=== PATIENT | female | born 1940 | race Caucasian/White ===

== ENCOUNTER → 2016-09-29 | Outpatient (CLI) | payer OTHER ==
[~2016-09-29] MED LIST: ASPIR 8181 MG PO; ASPIRIN325 PO; ATORVASTATIN CA40 MG PO; BIOTIN5000 MCG PO; CARTIA XT120 M1 PO; CARVEDILOL6.25 MG PO; CENTRUM SILVER1 EAC4 PO; CITRACAL + D M1 EACH PO; CLOPIDOGREL75 MG PO; COZAAR 25 MG TA25 M1 PO; EFFIENT10 MG PO; ELIQUIS5 MG PO; ESTRACE0.5 MG PO; ESTRADIOL 1 MG T1 M1 PO; FARXIGA5 MG PO; GLIMEPIRIDE4 MG PO; HYDROCODONE-AP1 EAC6 PO; IRON325 PO; JARDIANCE10 MG PO; KLOR-CON 1010 MEQ PO; LASIX 40 MG TAB40 M2 PO; LEVOTHYROXINE 0.1 MG PO; LEVOTHYROXINE0.05 MG PO; METFORMIN HCL500 MG PO; NITROGLYCERIN0.4 MG SUBLING; PACERONE 200 M200 M1 PO; PIOGLITAZONE15 MG; PRILOSEC20 MG PO; PROLOPRIM100 MG PO; SAVAYSA60 MG PO; SYNJARDY XR 121 EACH PO; VITAMINC500 PO
[2016-09-29 10:10] VITALS: BP 108/38
[2016-09-29 12:30] VITALS: BP 112/60
== END ==
LOC: OPONC 09-28 11:00
DX: D50.9 Iron deficiency anemia, unspecified (principal)
CPT/HCPCS: 95000; 95001

== ENCOUNTER → 2016-10-04 | Outpatient (CLI) | payer OTHER ==
[2016-10-04 14:07] VITALS: BP 142/75
== END ==
LOC: OPONC 09-29 09:52
DX: D50.9 Iron deficiency anemia, unspecified (principal)
CPT/HCPCS: 95000; 95001

== ENCOUNTER 2016-10-06 15:37 | Emergency (ER) | payer OTHER ==
[~2016-10-06] VITALS: Ht 170.2 cm; Wt 72.6 kg
--- NOTE | ~2016-10-06 | EKG ---
[address] [address] [facility] [place] [address] ELECTROCARDIOGRAM REPORT Name: LIZ SHAH Room #: [facility]#: [id number] Admission: 10/06/16 Attend Phys: Discharge: 10/06/16 Date of : 42 Report #: [id number] THIS REPORT FOR: //name// [facility] Test Date: 2016-10-06 Test Time: 16:06:54 Pat Name: LIZ SHAH Department: Room: Gender: F Associate Sales Representative: [email or web address] : 1940 Requested By: Shankar Cartagena Order Number: [id number] MD: Philip Calvo Measurements Intervals [place] Rate: 64 P: 25 IA: 196 QRS: -16 QRSD: 99 T: 49 QT: 425 QTc: 439 Interpretive Statements Sinus rhythm No significant abnormality Compared to ECG 04/08/2015 16:27:20 Sinus rhythm has replaced atrial fibrillation Electronically Signed On 10-07-2016 8:59:28 CDT by Philip Calvo [email or web address] <ELECTRONICALLY SIGNED> By: Philip Calvo MD, [facility] 10/07/16 0859 D: [id number] 05 Philip Calvo MD, FACC /EPI
[2016-10-06 16:07] LABS: ABSOLUTE NEUTROPHILS 5.3 thou/uL (1.4-8.2); BASOPHILS 1.2 % (0.0-2.0); EOSINOPHILS 1.5 % (0.0-3.0); HEMATOCRIT 27.1 % (37.0-47.0); HEMOGLOBIN 8.1 gm/dL (12.0-15.0); LYMPHOCYTES 19.3 % (24.0-44.0); MANUAL DIFF NO; MCH 23.2 pg (26.0-34.0); MCHC 29.9 g/dL (28.0-37.0); MCV 77.5 fL (80.0-100.0); MONOCYTES 8.2 % (1.0-8.0); PLATELET COUNT 326 thou/uL (150-400); POLYS 69.8 % (36.0-66.0); RDW 20.6 % (10.5-14.5); WBC 7.7 thou/uL (4.0-11.0)
[2016-10-06 16:17] LABS: ANION GAP 11 mmol/L (7-16); BUN 16 mg/dL (7-18); CALCIUM 8.7 mg/dL (8.5-10.1); CHLORIDE 106 mmol/L (98-107); CO2 22 mmol/L (21-32); CREATININE 0.8 mg/dL (0.6-1.0); GLUCOSE 322 mg/dL (74-106); POTASSIUM 4.6 mmol/L (3.5-5.1); SODIUM 139 mmol/L (136-145)
[2016-10-06 16:28] LABS: ALBUMIN 3.1 g/dL (3.4-5.0); ALKALINE PHOSPHATASE 40 U/L (46-116); DIRECT BILIRUBIN < 0.1 mg/dL (<0.1-0.3); NT-PRO BRAIN NAT PEPTIDE 1741 pg/mL (<300); SGOT 19 U/L (15-37); SGPT 20 U/L (30-65); TOTAL BILIRUBIN 0.2 mg/dL (<0.1-1.0); TOTAL PROTEIN 6.4 g/dL (6.4-8.2); TROPONIN-I 0.04 ng/mL (<0.04-0.07)
== END 2016-10-06 18:54 | disposition home or self-care (01) ==
LOC: ER 15:37
PROVIDERS: Nurse Practitioner
DX: R42 Dizziness and giddiness (principal); R53.1 Weakness; I25.2 Old myocardial infarction; I48.91 Unspecified atrial fibrillation; I50.9 Heart failure, unspecified; E11.9 Type 2 diabetes mellitus without complications; E03.9 Hypothyroidism, unspecified; E78.00 Pure hypercholesterolemia, unspecified; Z90.710 Acquired absence of both cervix and uterus; Z87.442 Personal history of urinary calculi; Z98.890 Other specified postprocedural states

== ENCOUNTER → 2016-10-06 | Outpatient (CLI) | payer OTHER ==
--- NOTE | ~2016-10-06 | EKG ---
[address] [place] [address] ELECTROCARDIOGRAM REPORT Name: PBALOLIZ A Room #: [facility]#: [id number] Admission: 10/06/16 Attend Phys: Francisca De La Garza Discharge: Date of : 42 Report #: [id number] THIS REPORT FOR: //name// [facility] Test Date: 2016-10-06 Test Time: 14:13:31 Pat Name: LIZ SHAH Department: Room: Gender: F Forest Economist: Ehsan KELLY : 1940 Requested By: Marc Rodríguez Order Number: [id number] MD: Philip Calvo Measurements Intervals [place] Rate: 109 P: NE: QRS: -17 QRSD: 77 T: 52 QT: 344 QTc: 464 Interpretive Statements Atrial fibrillation Poor R wave progression Compared to ECG 04/08/2015 16:27:20 Atrial fibrillation has replaced sinus rhythm Electronically Signed On 10-07-2016 8:29:18 CDT by Philip Calvo [email or web address] <ELECTRONICALLY SIGNED> By: Philip Calvo MD, [facility] 10/07/16 0829 1413 141 Philip Calvo MD, [facility] /EPI
[2016-10-06 13:54] LABS: HEMATOCRIT 29.4 % (37.0-47.0); HEMOGLOBIN 8.7 gm/dL (12.0-15.0); MCHC 29.7 g/dL (28.0-37.0); MCV 77.6 fL (80.0-100.0); RBC 3.78 mil/uL (4.20-5.00); RDW 20.9 % (10.5-14.5); WBC 7.3 thou/uL (4.0-11.0)
== END ==
LOC: OPONC 00:44
PROVIDERS: Neuromusculoskeletal Medicine & OMM
DX: D50.9 Iron deficiency anemia, unspecified (principal)
CPT/HCPCS: 95000; 95001

== ENCOUNTER → 2016-10-17 | Outpatient (CLI) | payer OTHER | LOC: GI 06:48 | DX: D64.9 Anemia, unspecified (principal) ==

== ENCOUNTER 2017-03-08 05:13 | Day surgery (SDC) | payer OTHER ==
[~2017-03-08] VITALS: Ht 167.6 cm; Wt 68.9 kg
[~2017-03-08 05:13] MED LIST changes: +CARVEDILOL12.5 MG PO; +IRON PO; +SYNTHROID100 MCG PO; +XARELTO20 MG PO
[2017-03-08 07:20] VITALS: BP 119/50
[2017-04-24] MEDS ORDERED: GLUCOPHAGE1000 MG PO (09:54)
[2017-04-24] MEDS ORDERED: INVOKANA100 MG PO (09:54)
[2017-04-24] MEDS ORDERED: TRAMADOL 50 MG50 MG PO (10:08)
== END 2017-03-08 09:00 | disposition home or self-care (01) ==
LOC: OR 05:13 → TBA 05:15 → OR 09:00 → MRI 12:48
DX: M54.16 Radiculopathy, lumbar region (principal); M25.78 Osteophyte, vertebrae; M51.26 Other intervertebral disc displacement, lumbar region; M51.36 Other intervertebral disc degeneration, lumbar region; M41.86 Other forms of scoliosis, lumbar region; Z90.49 Acquired absence of other specified parts of digestive tract; Z98.890 Other specified postprocedural states
CPT/HCPCS: 62110; 62900; 70005

== ENCOUNTER → 2017-04-24 | Outpatient (CLI) | payer OTHER ==
[~2017-04-24] VITALS: Ht 167.6 cm; Wt 70.3 kg
[~2017-04-24] MED LIST changes: +GLUCOPHAGE1000 MG PO; +INVOKANA100 MG PO; +KEFLEX500 M1 PO; +TRAMADOL 50 MG50 MG PO
--- NOTE | ~2017-04-24 | HPC ---
[facility] [address] [address] PAIN MANAGEMENT CONSULTATION Name: PABLOLIZ Andres Room #: [facility].#: [id number] Admission: 04/24/17 Attend Phys: Rakesh Fernando MD Discharge: Date of : 42 Report #: [id number] THIS REPORT FOR: //name// CC: Dhiraj Finley MD [facility] Rakesh Rodríguez MD DATE OF SERVICE: 04/24/2017 CHIEF COMPLAINT: Low back pain with radiation to the left leg. I am seeing today at the request of Dr. Rodríguez and Dr. Lomas. She is a elvin 77-year-old who has been experiencing pain in her left leg for about 6 months. In the past, she would see a chiropractor who is very helpful and provided relief for her. He has left town and the new chiropractor that she has seen has not been helpful. She said he did not spend much time with her and manipulations have been ineffective. She now has burning, shooting, aching pain 09/26. Pain is shooting in her left hip and into her arch. Comes and goes. It is improved with sitting. She has had an MRI, which shows that there is disk degeneration at multiple levels with a left convexity lumbar scoliotic curve. Osteophyte formation is formed at L1-L2, L2-L3, L3-L4 and L4-L5. There is asymmetric bulging at L4-L5 extending into the left neural foramina, which is combined with osteophyte formation from facet resulting in left neural foraminal narrowing in combination with a small lateral disk protrusion. There is additional bulging also noted at L3-L4 and L2-L3 with no evidence of significant central spinal stenosis. Symptoms do correlate with some of the left-sided findings on her MRI. She is here today to discuss an epidural injection. She is unable to receive an injection today for 2 reasons, one she is still on Xarelto within the window for which we must wait due to risk of epidural hematoma and secondly because she needs a preauthorization from her insurance company. MEDICATIONS: Tramadol, metformin, Invokana, Xarelto. She discontinued it 48 hours ago. Carvedilol, iron, biotin, aspirin, calcium, estradiol, losartan, nitroglycerin, and Lipitor. ALLERGIES: None. PAST MEDICAL HISTORY: Significant for atrial fibrillation and myocardial infarction, which occurred at the time when she was diagnosed with atrial fibrillation, she has 2 coronary artery stents. She had bleeding polyps, which required surgery in 06/2014. She had a partial colectomy performed by Dr. Painter. She has been operated on for a prolapsed bladder in 2016[place] [address] PAIN MANAGEMENT CONSULTATION Name: LIZ SHAH Room #: REG [facility] Armando#: [id number] Admission: 04/24/17 Attend Phys: Rakesh Fernando MD Discharge: Date of : 42 Report #: [id number] surgeries include hysterectomy in 1997, appendectomy in 1952 and tonsillectomy in 1973. Medical conditions include coronary artery disease, atrial fibrillation, type 2 diabetes, anemia, gastritis and a history of arthritis. REVIEW OF SYSTEMS: Completed by the patient describes heart problems, palpitations, recent change in bowel movements with frequent diarrhea and nocturia. She is a non-insulin dependent diabetic. She does have some numbness and tingling in her feet. SOCIAL HISTORY: She is . is with her today and supportive. She does not smoke. She drinks alcohol once or twice every 4-5 months. 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 They live independently. Her activities of daily living are limited mostly with weightbearing and walking activities such as shopping and cleaning. PHYSICAL EXAMINATION: Very pleasant, outgoing female. Blood pressure is 127/77, heart rate is 81, respirations 16. She is 5 feet 6 inches, 155 pounds. Her BMI is 25.0. Her pain intensity is a 4/10. She is able to move independently and ambulate with a short stepped gait. She does not have some asymmetry to her gait pattern. She does not appear to be a fall risk and has not fallen in the last 3 months. It should be noted she is under treatment for hypertension. Examination of the low back reveals scoliosis. There is tenderness across the lumbosacral segment. Straight leg raising on the left reproduces pain down the lateral aspect to the leg and in the posterior aspect, which involves mostly the distribution of L5 and S1. Deep tendon reflexes show asymmetry. She has 2+ knee jerk reflex on the right and an absent reflex on the left. Ankle jerk reflexes bilaterally are absent. Sensation is intact. There is no peripheral edema, no swelling. Straight leg raising bilaterally is positive in both the sitting and supine position following low lumbar dermatomal distribution. IMPRESSION: Degenerative spine disease with scoliosis and neural foraminal narrowing and left lumbar radiculopathy L4 through S1 RECOMMENDATIONS: Lumbar epidural steroid injection under fluoroscopic guidance. We will seek preauthorization. She is to remain off of her Xarelto and I will see her back into the pain clinic for an injection on pending preauthorization. She is an excellent candidate and very appropriate for this treatment. We discussed the importance of walking. Encouraged her to begin a walking program as soon as possible. The epidural injection should help with the [facility] [address] [place] [address] PAIN MANAGEMENT CONSULTATION Name: LIZ SHAH Room #: REG [facility].#: [id number] Admission: 04/24/17 Attend Phys: Rakesh Fernando MD Discharge: Date of : 42 Report #: [id number] physical activity discussed today in our clinic. Medications were also reviewed. She cannot take nonsteroidal anti-inflammatory drugs. She is cautious about opioid medications. She might be a candidate for gabapentin depending on blood pressure. We will discuss all of this with her once again when she returns to pain clinic. Time spent with the patient roughly 40 minutes to 45 minutes. <ELECTRONICALLY SIGNED> By: Rakesh Fernando MD 05/17/17 1640 1514 1838 Rakesh Fernando MD /nt
[2017-04-24 09:48] VITALS: BP 127/77
== END ==
LOC: PAIN 06:53
DX: M47.897 Other spondylosis, lumbosacral region (principal); M41.87 Other forms of scoliosis, lumbosacral region; E11.9 Type 2 diabetes mellitus without complications; Z72.89 Other problems related to lifestyle

== ENCOUNTER → 2017-04-27 | Outpatient (CLI) | payer OTHER ==
[~2017-04-27] VITALS: Ht 167.6 cm; Wt 71.1 kg
[~2017-04-27] MED LIST changes: -KEFLEX500 M1 PO
--- NOTE | ~2017-04-27 | HPC ---
[address] [address] PAIN MANAGEMENT CONSULTATION Name: LIZ SHAH Room #: REG [facility].#: [id number] Admission: 04/27/17 Attend Phys: Rakesh Fernando MD Discharge: Date of : 42 Report #: [id number] THIS REPORT FOR: //name// CC: Dhiraj Finley MD [facility] Rakesh Rodríguez MD DATE OF SERVICE: 04/27/2017 Followup visit for lumbar radiculopathy, left L4-L5, L5-S1 distribution. The patient is here today for epidural injection discussed on 04/24/2017. Because of blood thinner and preauthorization requirements, we were unable to perform the injection on that date. Please refer to the dictation from just 3 days ago, nothing is changed. She has remained off of her Xarelto and we are going to proceed today with a left paramedian L4-L5 epidural injection under fluoroscopic guidance. Potential benefits and risks have been reviewed and discussed. I did use some diagrams today to demonstrate the location of medication. All questions were answered. IMPRESSION: Degenerative spine disease with scoliosis and neural foraminal narrowing, left lumbar radiculopathy L4 through S1 PROCEDURE: L4-L5: Epidural steroid injection under fluoroscopic guidance. She was taken to fluoroscopic suite, placed prone, skin prepped with ChloraPrep. Skin anesthetized over L4-L5 and a 20-gauge Tuohy epidural needle advanced in first attempt in the left paramedian epidural space. There was no blood or CSF aspirated. 1 mL of Omnipaque was injected with good spread of dye observed into the lateral recess, was followed by 3 mL of 1% lidocaine mixed with 80 mg triamcinolone. She tolerated the procedure well and was observed for 45 minutes and discharged. Followup visit planned in a month as needed for further injections. Her goal is to provide substantial, meaningful and lasting pain relief with the lowest number of injections possible. We will see her as needed. <ELECTRONICALLY SIGNED> By: Rakesh Fernando MD 05/17/17 1640 1020 1826 Rakesh Fernando MD /nt
[2017-04-27 09:37] VITALS: BP 123/60
== END | disposition home or self-care (01) ==
LOC: PAIN 06:53
DX: M51.16 Intervertebral disc disorders with radiculopathy, lumbar region (principal); M41.86 Other forms of scoliosis, lumbar region; M48.061 Spinal stenosis, lumbar region without neurogenic claudication; Z79.82 Long term (current) use of aspirin; Z79.899 Other long term (current) drug therapy; D64.9 Anemia, unspecified

== ENCOUNTER → 2017-05-11 | Outpatient (CLI) | payer OTHER ==
[~2017-05-11] VITALS: Ht 167.6 cm; Wt 68.0 kg
[~2017-05-11] MED LIST changes: +KEFLEX500 M1 PO
--- NOTE | ~2017-05-11 | HPC ---
[facility] [address] [place] [address] PAIN MANAGEMENT CONSULTATION Name: LIZ SHAH Andres Room #: REG [facility] Prabha#: [id number] Admission: 05/11/17 Attend Phys: Rakesh Fernando MD Discharge: Date of : 42 Report #: [id number] THIS REPORT FOR: //name// CC: Rakesh Rodríguez MD DATE OF SERVICE: 05/11/2017 Followup visit for low back pain with radiculopathy. The patient returns to pain clinic today and I am pleased to report that she has an 85%-90% improvement. She has been able to go back to the gym under her [employer] program and has been able to exercise with very limited pain. Only the stepper machine causes slight pain into her hip. She is very pleased with her response. She had questions about additional injections today and I discussed with her philosophy. Her pain intensity is 2. She is back on her Xarelto. She is not taking opioids. I have explained the epidural injection as a tool and her tool box for managing her radicular symptoms. Many of our patients receive a single injection. There is no rule nor is there no proven algorithm of success. Multiple injections are beneficial when patients have already done exceptionally well with a single injection. She does need an injection at this point in time. That said, we have many patients who receive anywhere between 1 and 4 injections in a year as a tool to provide pain relief. The li is that they get meaningful response with a single injection with a meaningful duration of response, which is roughly 3 months on average. This seems to minimize cortisone related side effects. Does not abuse procedure and provides what we hope for, pain relief. She understands that this is not a cure for her underlying changes. We reviewed her x-rays from her injection, which showed the degenerative changes of the rotational scoliosis and likely cause of pain. She has a good understanding of her anatomy. IMPRESSION: Degenerative spine disease with scoliosis and neural foraminal narrowing, left lumbar radiculopathy L4 through S1. RECOMMENDATIONS: Follow up as needed for further injections. <ELECTRONICALLY SIGNED> By: Rakesh Fernando MD 05/17/17 1640 1403 1917 Rakesh Fernando MD /nt
[2017-05-11 13:31] VITALS: BP 112/63
== END ==
LOC: PAIN 07:08
DX: M54.16 Radiculopathy, lumbar region (principal); M41.86 Other forms of scoliosis, lumbar region

== ENCOUNTER → 2017-06-22 | Outpatient (CLI) | payer OTHER ==
[~2017-06-22] VITALS: Ht 167.6 cm; Wt 68.0 kg
[~2017-06-22] MED LIST changes: -KEFLEX500 M1 PO
--- NOTE | ~2017-06-22 | HPC ---
[facility] [place] [address] PAIN MANAGEMENT CONSULTATION Name: LIZ SHAH Andres Room #: [facility].#: [id number] Admission: 06/22/17 Attend Phys: Rakesh Fernando MD Discharge: Date of : 42 Report #: [id number] THIS REPORT FOR: //name// CC: Rakesh Rodríguez MD DATE OF SERVICE: 06/22/2017 Followup visit for lumbar radiculopathy. The patient had a single epidural injection. For nearly 1 month, she was almost pain free. The pain is now gradually returning. It is not as bad as it was when she previously was here for injection, but it is not quite as good as it was a month following her injection. Given the recurrence of her pain now about 2 months out from her first injection, I think it is reasonable to repeat another injection. We have talked about the philosophy of using an injection sparingly and intermittently to help manage a chronic condition. She has some rotational scoliosis, is not a great surgical candidate. She would like to avoid medication. PHYSICAL EXAMINATION: Reveals once again a pleasant female. Blood pressure 109/65, heart rate 75. She has a positive straight leg raising discomfort noted mostly on the left. Follows in L5 or through S1 distribution. Pain is reproduced at about 45 degrees. Sensation and strength are normal. IMPRESSION: Low back pain with radiculopathy. RECOMMENDATION: Return after discontinuing Xarelto for 4-5 days. I will see her back in the Pain Clinic on Monday. She has had an excellent response to her previous injection. We are hopeful that we can extend that response with second. <ELECTRONICALLY SIGNED> By: Rakesh Fernando MD 06/26/17 1408 1657 01 Rakesh Fernando MD /nt
[2017-06-22 13:59] VITALS: BP 109/65
== END ==
LOC: PAIN 07:29
DX: M54.16 Radiculopathy, lumbar region (principal)

== ENCOUNTER → 2017-07-03 | Outpatient (CLI) | payer OTHER ==
[~2017-07-03] VITALS: Ht 167.6 cm; Wt 67.9 kg
--- NOTE | ~2017-07-03 | HPC ---
[facility] [place] [address] [address] [place] [address] PAIN MANAGEMENT CONSULTATION Name: LIZ SHAH Room #: REG [facility] Armando#: [id number] Admission: 07/03/17 Attend Phys: Rakesh Fernando MD Discharge: Date of : 42 Report #: [id number] THIS REPORT FOR: //name// CC: Rakesh Rodríguez DATE OF SERVICE: 07/03/2017 Followup visit for lumbar radiculopathy. I saw the patient just a week ago. She is now off of her blood thinner for an appropriate amount of time. We are going to proceed with her epidural injection. She discontinued Xarelto last . PHYSICAL EXAMINATION: Unchanged from visit just 5 days ago. IMPRESSION: Low back pain with radiculopathy. Excellent response to epidural injection in the past. PROCEDURE: Epidural injection under fluoroscopic guidance. She was taken to fluoroscopic suite, placed prone, skin prepped with ChloraPrep. Skin anesthetized left to midline at L4-L5. A 20-gauge Tuohy epidural needle advanced in the epidural space with loss of resistance technique. There was no blood or CSF aspirated. 1 mL of Omnipaque was injected. Good spread of dye observed into the epidural space followed by 3 mL of 0.5% lidocaine mixed with 80 mg triamcinolone. She tolerated the procedure well and was observed for 45 minutes and discharged in good condition. Follow up as needed. By: 15 2227 Rakesh Fernando MD /chavo
[2017-07-03 13:31] VITALS: BP 101/53
== END | disposition home or self-care (01) ==
LOC: PAIN 07:06
DX: M54.16 Radiculopathy, lumbar region (principal); Z79.899 Other long term (current) drug therapy

== ENCOUNTER → 2017-09-25 | Outpatient (CLI) | payer OTHER ==
[2017-09-25 10:03] LABS: HEMATOCRIT 33.6 % (37.0-47.0); HEMOGLOBIN 11.1 gm/dL (12.0-15.0); MCH 30.8 pg (26.0-34.0); MCHC 33.2 g/dL (28.0-37.0); RBC 3.61 mil/uL (4.20-5.00); RDW 15.2 % (10.5-14.5)
[2017-09-25 10:13] LABS: CALCIUM 8.4 mg/dL (8.5-10.1); CREATININE 0.7 mg/dL (0.6-1.0); POTASSIUM 4.3 mmol/L (3.5-5.1)
[2017-09-25 10:19] LABS: ALBUMIN 3.2 g/dL (3.4-5.0); TOTAL BILIRUBIN 0.4 mg/dL (<0.1-1.0); TOTAL PROTEIN 6.4 g/dL (6.4-8.2)
== END ==
LOC: CAT 08:52
PROVIDERS: Internal Medicine Cardiovascular Disease
DX: I25.84 Coronary atherosclerosis due to calcified coronary lesion (principal); I48.91 Unspecified atrial fibrillation; M47.894 Other spondylosis, thoracic region

== ENCOUNTER 2017-09-28 09:00 | Observation (INO) | payer OTHER ==
[~2017-09-28] VITALS: Ht 170.2 cm; Wt 67.1 kg
--- NOTE | ~2017-09-28 | P ---
[facility] [place] [address] PROCEDURE REPORT Name: LIZ SHAH Room #: 218-P [facility].#: [id number] Admission: 09/28/17 Attend Phys: Erasmo Arias MD Discharge: 09/29/17 Date of : 42 Report #: [id number] THIS REPORT FOR: //name// CC: Erasmo Willsonguru Millsfermin DATE OF SERVICE: 09/28/2017 PREOPERATIVE DIAGNOSIS: Atrial fibrillation. POSTOPERATIVE DIAGNOSIS: Atrial fibrillation. HISTORY: The patient is a 77-year-old female with recurrent atrial fibrillation who is here for an ablation. PROCEDURE PERFORMED: 1. AFib ablation, CPT code 50442. 2. 3D mapping EP, CPT code 37751. 3. Intracardiac echo, CPT code 55235. PROCEDURE: The patient underwent informed consent. We discussed the details of the procedure including the risks, which include but not limited to bleeding, infection, stroke, ND, and cardiac perforation. She understood these risks and is willing to proceed. The patient was brought to the EP Laboratory in a fasting and sedated state, prepped and draped in sterile fashion. At baseline, she was in sinus rhythm with sinus cycle length of 1230 milliseconds, DE interval 245 milliseconds, QRS duration 78 milliseconds, QT interval 510 milliseconds. Next, I injected lidocaine to the right groin region, obtained access to the right femoral vein x 3, placing a 9-Comoran, 8-Comoran and 7-Comoran short sheath. Under fluoroscopy, I placed a decapolar catheter easily in the coronary sinus and an ICE catheter into the right atrium. A 3D geometry was created using intracardiac echo with evidence of 2 left and 2 right pulmonary veins. Next, the patient was systemically heparinized and using an SL1 sheath and a Benton needle, a transseptal was performed. I was able to get the tip of my SL1 sheath into the left atrium and direct a guidewire into the left superior pulmonary vein, but I could not advance this over the wire. I therefore used the cryo sheath to try to dilate this and get into the left atrium, but this was also unsuccessful. Therefore, I then exchanged the SL1 sheath and at this time, I could now get into the left atrium. I therefore placed a guidewire into the left superior pulmonary vein and over the guidewire, we placed a POWERFLEX Pro 7 mm x 4 cm balloon and dilated the interatrial septum. I then removed the balloon and I was then able to pass the cryo sheath into the left atrium. Next, we started to isolate the pulmonary veins. The left superior pulmonary vein underwent a 4-minute freeze and a 3-minute freeze. The vein isolated at 138 seconds during [facility] [address] [place] [address] PROCEDURE REPORT Name: LIZ SHAH Room #: 218-P [facility] M.R.#: [id number] Admission: 09/28/17 Attend Phys: Erasmo Arias MD Discharge: 09/29/17 Date of : 42 Report #: [id number] the first freeze. The left inferior pulmonary vein underwent a 4-minute freeze as well as a 3-minute freeze. The vein isolated within 54 seconds of the first freeze. The right superior pulmonary vein underwent two 4-minute freezes and there was evidence of isolation. The right inferior pulmonary vein underwent three 4-minute freezes. After the first 2 freezes there was isolation, but then return of conduction. With the third freeze, there was no return of conduction. All the veins were re-interrogated and there was evidence of entrance and exit block. Prior to isolating the vein, I did use a [employer] Jain Lasso catheter to create a left atrial 3D geometry and to obtain baseline voltage map. At the conclusion of the procedure, the patient was in sinus rhythm with the sinus cycle length of 1040 milliseconds, DE interval 245 milliseconds, QRS duration 75 milliseconds, QT interval 495 milliseconds. As such, sheaths were pulled to the right atrium. Using intracardiac ultrasound, there was no evidence of pericardial effusion. The patient received systemic protamine and once ACT was within acceptable range, all catheters and sheaths were pulled and hemostasis obtained. CONCLUSIONS: Successful AFib ablation with isolation of the 4 pulmonary veins. <ELECTRONICALLY SIGNED> By: Erasmo Arias MD 10/02/17 1454 1557 7310 Erasmo Arias MD /nt
[2017-09-28 09:45] VITALS: BP 142/52
[2017-09-28] MEDS ORDERED: ASPIR 8181 MG PO (09:47)
[2017-09-28 10:05] LABS: ABSOLUTE NEUTROPHILS 4.8 thou/uL (1.4-8.2); BASOPHILS 0.7 % (0.0-2.0); HEMATOCRIT 36.2 % (37.0-47.0); HEMOGLOBIN 11.9 gm/dL (12.0-15.0); LYMPHOCYTES 11.1 % (24.0-44.0); MCH 30.1 pg (26.0-34.0); MCHC 32.9 g/dL (28.0-37.0); MCV 91.5 fL (80.0-100.0); PLATELET COUNT 273 thou/uL (150-400); POLYS 76.2 % (36.0-66.0); RBC 3.95 mil/uL (4.20-5.00); RDW 15.4 % (10.5-14.5); WBC 6.3 thou/uL (4.0-11.0)
[2017-09-28 10:16] LABS: CALCIUM 8.6 mg/dL (8.5-10.1); CREATININE 0.8 mg/dL (0.6-1.0); POTASSIUM 3.8 mmol/L (3.5-5.1)
[2017-09-28 10:18] LABS: APTT 26.1 Seconds (24.5-32.8); INR 1.1; PROTIME 11.3 Seconds (9.3-11.4)
[2017-09-28 10:22] LABS: ALBUMIN 3.3 g/dL (3.4-5.0); TOTAL BILIRUBIN 0.5 mg/dL (<0.1-1.0); TOTAL PROTEIN 6.9 g/dL (6.4-8.2)
[2017-09-28 17:45] VITALS: BP 166/80
[2017-09-28 18:36] VITALS: BP 167/69
[2017-09-28 20:05] VITALS: BP 135/52
[2017-09-29 05:20] VITALS: BP 108/50
[2017-09-29 07:35] VITALS: BP 124/54
[2017-09-29 08:54] VITALS: BP 124/54
== END 2017-09-29 10:40 | disposition home or self-care (01) ==
LOC: CATH 09:00 → 2N 17:03 → ENTRNSPT 09-29 09:16 → 2N 09-29 10:40
PROVIDERS: Internal Medicine Cardiovascular Disease
DX: I48.0 Paroxysmal atrial fibrillation (principal); I25.10 Atherosclerotic heart disease of native coronary artery without angina pectoris; E11.9 Type 2 diabetes mellitus without complications; I21.3 ST elevation (STEMI) myocardial infarction of unspecified site; E07.9 Disorder of thyroid, unspecified; E78.00 Pure hypercholesterolemia, unspecified; Z98.890 Other specified postprocedural states; Z90.49 Acquired absence of other specified parts of digestive tract; Z90.710 Acquired absence of both cervix and uterus; Z72.89 Other problems related to lifestyle; Z95.5 Presence of coronary angioplasty implant and graft
CPT/HCPCS: 62110; 62900; 65020; 65040; 70005

== ENCOUNTER 2017-10-04 15:54 | Emergency (ER) | payer OTHER ==
[~2017-10-04] VITALS: Ht 170.2 cm; Wt 66.2 kg
--- NOTE | ~2017-10-04 | EKG ---
[address] [address] [place] [address] ELECTROCARDIOGRAM REPORT Name: LIZ SHAH [id number] Admission: 10/04/17 Attend Phys: Discharge: 10/04/17 Date of : 42 Report #: [id number] THIS REPORT FOR: //name// [facility] ED Test Date: 2017-10-04 Test Time: 15:58:00 Pat Name: LIZ SHAH Department: Room: Gender: F Complaint Manager: Elizabeth PAGE RN : 1940 Requested By: Perla Turpin Order Number: [id number] MD: Philip Calvo Measurements Intervals [place] Rate: 70 P: -70 MD: 254 QRS: -24 QRSD: 83 T: 151 QT: 488 QTc: 527 Interpretive Statements Sinus or ectopic atrial rhythm Prolonged MD interval Borderline left axis deviation Nonspecific ST and T wave abnormality Prolonged QT interval Baseline wander in lead(s) V1,V2 Compared to ECG 10/06/2016 16:06:54 Ectopic atrial rhythm now present Prolonged QT interval now present nonspecific change in the ST and T-wave segments Electronically Signed On 10-06-2017 8:35:08 CDT by Philip Calvo [email or web address] <ELECTRONICALLY SIGNED> By: Philip Calvo MD, [facility] 10/06/17 0835 1558 1558 Philip Calvo MD, [facility] /EPI
[2017-10-04 16:21] LABS: HEMATOCRIT 29.5 % (37.0-47.0); HEMOGLOBIN 9.7 gm/dL (12.0-15.0); MCH 30.1 pg (26.0-34.0); MCV 91.4 fL (80.0-100.0); PLATELET COUNT 255 thou/uL (150-400); RBC 3.22 mil/uL (4.20-5.00); RDW 15.6 % (10.5-14.5); WBC 5.4 thou/uL (4.0-11.0)
[2017-10-04 16:29] LABS: CALCIUM 9.3 mg/dL (8.5-10.1); CREATININE 0.9 mg/dL (0.6-1.0); POTASSIUM 4.4 mmol/L (3.5-5.1)
[2017-10-04 16:38] LABS: ALBUMIN 3.2 g/dL (3.4-5.0); TOTAL BILIRUBIN 0.6 mg/dL (<0.1-1.0); TOTAL PROTEIN 6.6 g/dL (6.4-8.2); TROPONIN-I 0.58 ng/mL (<0.06)
[2017-10-04 16:47] LABS: ABSOLUTE NEUTROPHILS 3.8 thou/uL (1.4-8.2)
[2017-10-04 16:48] LABS: ANISOCYTOSIS 1+
[2017-10-04 17:15] LABS: URINE BILIRUBIN NEGATIVE (Negative); URINE BLOOD NEGATIVE (Negative); URINE CLARITY SL CLOUDY; URINE COLOR YELLOW; URINE GLUCOSE-RANDOM* 3+ (Negative); URINE KETONES NEGATIVE (Negative); URINE LEUKOCYTES-REFLEX NEGATIVE (Negative); URINE PROTEIN (DIPSTICK) NEGATIVE (Negative); URINE UROBILINOGEN 0.2 E.U./dl (0.2-1.0)
[2017-10-04 17:16] LABS: URINE NITRITE-REFLEX POSITIVE (Negative)
[2017-10-04 17:23] LABS: CASTS None Seen /LPF (None Seen); CRYSTALS None Seen /LPF (None Seen); SQUAMOUS 0-3 Few /LPF (0-3); URINE WBC-REFLEX 0-5 Rare /HPF (0-5); YEAST-REFLEX Present (None Seen)
[2017-10-04 17:24] LABS: URINE RBC None Seen /HPF (0-2)
[2017-10-04 17:27] LABS: APTT 35.5 Seconds (24.5-32.8); INR 1.4; PROTIME 14.7 Seconds (9.3-11.4)
[2017-10-04] MEDS ORDERED: KEFLEX500 M1 PO (17:33)
== END 2017-10-04 17:35 | disposition home or self-care (01) ==
LOC: ER 15:54
PROVIDERS: Physician Assistant
DX: N39.0 Urinary tract infection, site not specified (principal); R06.00 Dyspnea, unspecified; D64.9 Anemia, unspecified; I10 Essential (primary) hypertension; E11.9 Type 2 diabetes mellitus without complications; Z90.710 Acquired absence of both cervix and uterus; Z95.5 Presence of coronary angioplasty implant and graft

== ENCOUNTER → 2017-12-12 | Outpatient (CLI) | payer OTHER ==
[~2017-12-12] MED LIST changes: +KEFLEX500 M1 PO
== END ==
LOC: RAD 13:13
DX: N91.2 Amenorrhea, unspecified (principal); I48.91 Unspecified atrial fibrillation; I50.9 Heart failure, unspecified; E78.00 Pure hypercholesterolemia, unspecified; E03.9 Hypothyroidism, unspecified; E11.9 Type 2 diabetes mellitus without complications; Z78.0 Asymptomatic menopausal state

== ENCOUNTER 2018-07-05 10:21 | Emergency (ER) | payer OTHER ==
[~2018-07-05] VITALS: Ht 170.2 cm; Wt 65.8 kg
[2018-07-05] MEDS ORDERED: AMIODARONE HCL400 MG PO (10:38)
[2018-07-05] MEDS ORDERED: NOVOLOG FL100 UNIT/M SUBQ (10:39)
[2018-07-05] MEDS ORDERED: COZAAR100 MG PO (11:26)
[2018-07-05 11:42] VITALS: BP 165/56
== END 2018-07-05 11:42 | disposition home or self-care (01) ==
LOC: ER 10:21
DX: I10 Essential (primary) hypertension (principal); Z90.710 Acquired absence of both cervix and uterus; Z95.5 Presence of coronary angioplasty implant and graft

== ENCOUNTER → 2019-04-04 | Outpatient (CLI) | payer OTHER ==
[~2019-04-04] MED LIST changes: +AMIODARONE HCL400 MG PO; +COZAAR100 MG PO; +NOVOLOG FL100 UNIT/M SUBQ
== END ==
LOC: SJCVC 13:40
DX: I48.91 Unspecified atrial fibrillation (principal); I44.0 Atrioventricular block, first degree; R00.1 Bradycardia, unspecified; I25.10 Atherosclerotic heart disease of native coronary artery without angina pectoris; E78.5 Hyperlipidemia, unspecified; E11.9 Type 2 diabetes mellitus without complications; I10 Essential (primary) hypertension; Z87.828 Personal history of other (healed) physical injury and trauma; Z79.4 Long term (current) use of insulin; Z79.82 Long term (current) use of aspirin; Z79.899 Other long term (current) drug therapy

== ENCOUNTER → 2019-06-19 | Outpatient (CLI) | payer OTHER | LOC: SJCVCIMAG 05-28 11:21 | DX: I08.0 Rheumatic disorders of both mitral and aortic valves (principal); I10 Essential (primary) hypertension; I48.0 Paroxysmal atrial fibrillation; I25.2 Old myocardial infarction; I25.10 Atherosclerotic heart disease of native coronary artery without angina pectoris; E11.9 Type 2 diabetes mellitus without complications; Z79.899 Other long term (current) drug therapy ==

== ENCOUNTER → 2020-01-23 | Outpatient (CLI) | payer OTHER | LOC: SJCVC 14:16 | PROVIDERS: ATTEND Internal Medicine Cardiovascular Disease | DX: I25.10 Atherosclerotic heart disease of native coronary artery without angina pectoris (principal); E11.9 Type 2 diabetes mellitus without complications; I48.91 Unspecified atrial fibrillation; I34.0 Nonrheumatic mitral (valve) insufficiency; E78.5 Hyperlipidemia, unspecified; I10 Essential (primary) hypertension; I25.2 Old myocardial infarction; Z79.4 Long term (current) use of insulin; Z79.899 Other long term (current) drug therapy; Z87.828 Personal history of other (healed) physical injury and trauma ==

== ENCOUNTER → 2021-01-13 | Outpatient (CLI) | payer OTHER | LOC: RAD 11:07 | PROVIDERS: ATTEND Neuromusculoskeletal Medicine & OMM | DX: Z12.31 Encounter for screening mammogram for malignant neoplasm of breast (principal); N64.89 Other specified disorders of breast ==

== ENCOUNTER → 2021-05-17 | Outpatient (CLI) | payer OTHER ==
[2021-05-17 10:33] LABS: CREATININE 0.9 mg/dL (0.6-1.0)
== END ==
LOC: CAT 05-11 08:47
PROVIDERS: ATTEND Nurse Practitioner
DX: K57.30 Diverticulosis of large intestine without perforation or abscess without bleeding (principal); Z90.49 Acquired absence of other specified parts of digestive tract